=== PATIENT | female | born 1965 | race African-American/Black ===

== ENCOUNTER 2019-07-17 12:40 | Emergency (ER) | payer BC, MEDICARE ==
[~2019-07-17] VITALS: Ht 165.1 cm; Wt 79.0 kg
[~2019-07-17 12:40] MED LIST: ACTOS; LANTUS
[2019-07-17 13:16] VITALS: BP 95/54
== END 2019-07-17 13:58 | disposition left against medical advice (07) ==
LOC: ER 12:40
DX: R53.1 Weakness (principal); Z53.21 Procedure and treatment not carried out due to patient leaving prior to being seen by health care provider
CPT/HCPCS: 93005

== ENCOUNTER 2019-08-28 10:08 | Emergency (ER) | payer MEDICARE ==
[~2019-08-28] VITALS: Ht 165.1 cm; Wt 77.0 kg
[2019-08-28] MEDS ORDERED: ONDANSETRON HCL 4MG/2ML INJ IV ONE (11:00)
[2019-08-28] MEDS ORDERED: KETOROLAC 15MG/ML VIAL IV ONE (11:00)
[2019-08-28] MEDS ORDERED: SODIUM CHLORIDE 0.9% 1,000 ML IV ONE (11:00)
[2019-08-28 11:38] LABS: BASOPHILS % 1.6 % (0.0-2.0); EOSINOPHILS % 0.9 % (0.0-5.0); HEMATOCRIT. 36.4 % (36.0-48.0); HEMOGLOBIN. 11.9 g/dL (12.0-16.0); LYMPHOCYTES % 46.4 % (20.0-50.0); MEAN CORPUSCULAR HEMOGLOBIN 19.2 pg (28.0-32.0); MEAN CORPUSCULAR VOLUME 58.9 fL (81.0-99.0); MEAN PLATELET VOLUME 9.2 fl (7.4-10.4); MONOCYTES % 5.4 % (2.0-8.0); NEUTROPHILS % 45.7 % (40.0-76.0); PLATELET 328 x1000/uL (130-400); RED BLOOD CELL COUNT 6.17 mill/uL (4.2-5.4); RED CELL DISTRIBUTION WIDTH 16.5 % (11.6-14.6)
[2019-08-28 11:39] LABS: CLARITY URINE CLEAR (CLEAR); COLOR URINE YELLOW (YELLOW); KETONES URINE NEGATIVE (NEGATIVE); LEUKOCYTE ESTERASE URINE NEGATIVE (NEGATIVE); NITRITE URINE NEGATIVE (NEGATIVE); OCCULT BLOOD URINE NEGATIVE (NEGATIVE); PROTEIN URINE NEGATIVE (NEGATIVE); SPECIFIC GRAVITY URINE 1.009 (1.005-1.030); UROBILINOGEN URINE 0.2 E.U./dL (0.2-1.0)
[2019-08-28 11:44] LABS: CHLORIDE 104 mEq/L (98-107)
[2019-08-28 11:47] LABS: PROTHROMBIN TIME 10.3 sec (9.6-11.0)
[2019-08-28 11:52] LABS: PLATELET ESTIMATE NORMAL
[2019-08-28 12:20] VITALS: BP 136/65
== END 2019-08-28 12:49 | disposition home or self-care (01) ==
LOC: ER 10:08
DX: M54.9 Dorsalgia, unspecified (principal); R35.0 Frequency of micturition; R35.8 Other polyuria; E11.8 Type 2 diabetes mellitus with unspecified complications; Z98.890 Other specified postprocedural states
CPT/HCPCS: 36415; 80053; 81003; 83690; 85025; 85610; 96374; 96375; 99283; J1885; J2405; J7030

== ENCOUNTER 2021-06-28 07:28 | Emergency (ER) | payer MEDICARE ==
[~2021-06-28] VITALS: Ht 162.6 cm; Wt 72.0 kg
[2021-06-28] MEDS ORDERED: PHENAZOPYRIDINE HCL 100MG TABLET PO ONE (08:15)
[2021-06-28 08:28] LABS: BASOPHILS % 0.9 % (0.0-2.0); EOSINOPHILS % 1.8 % (0.0-5.0); HEMATOCRIT. 34.5 % (36.0-48.0); HEMOGLOBIN. 10.9 g/dL (12.0-16.0); LYMPHOCYTES % 47.9 % (20.0-50.0); MEAN CORPUSCULAR HEMOGLOBIN 19.1 pg (28.0-32.0); MEAN CORPUSCULAR VOLUME 60.1 fL (81.0-99.0); MEAN PLATELET VOLUME 9.1 fl (7.4-10.4); MONOCYTES % 7.8 % (2.0-8.0); NEUTROPHILS % 41.6 % (40.0-76.0); PLATELET 306 x1000/uL (130-400); RED BLOOD CELL COUNT 5.74 mill/uL (4.2-5.4); RED CELL DISTRIBUTION WIDTH 15.9 % (11.6-14.6)
[2021-06-28 08:29] LABS: CLARITY URINE TURBID (CLEAR); COLOR URINE YELLOW (YELLOW); KETONES URINE NEGATIVE (NEGATIVE); LEUKOCYTE ESTERASE URINE 3+ (NEGATIVE); NITRITE URINE POSITIVE (NEGATIVE); OCCULT BLOOD URINE 1+ (NEGATIVE); PH URINE 5.5 (4.5-8.0); PROTEIN URINE TRACE (NEGATIVE); UROBILINOGEN URINE 0.2 E.U./dL (0.2-1.0)
[2021-06-28 08:34] LABS: CHLORIDE 109 mEq/L (98-107)
[2021-06-28] MEDS ORDERED: CEPH500T MT (09:06)
[2021-06-28 09:10] LABS: PLATELET ESTIMATE NORMAL
[2021-06-28 09:15] VITALS: BP 129/60
[2021-07-01 04:17] LABS: NEISSERIA GONORRHOEAE NAA Negative (Negative)
== END 2021-06-28 09:45 | disposition home or self-care (01) ==
LOC: ER 07:28
DX: N39.0 Urinary tract infection, site not specified (principal); E11.65 Type 2 diabetes mellitus with hyperglycemia; Z98.890 Other specified postprocedural states; Z79.899 Other long term (current) drug therapy
CPT/HCPCS: 36415; 80053; 81003; 84702; 85025; 87077; 87186; 87491; 87591; 93005; 99284

== ENCOUNTER 2022-01-28 06:59 | Emergency (ER) | payer MEDICARE ==
[~2022-01-28] VITALS: Ht 162.6 cm; Wt 98.3 kg
[~2022-01-28 06:59] MED LIST changes: +CEPH500T MT
[2022-01-28 07:19] VITALS: BP 149/63
[2022-01-28] MEDS ORDERED: TOPUD PO (07:50)
[2022-01-28] MEDS ORDERED: AMOX-424 PO (07:50)
== END 2022-01-28 08:16 | disposition home or self-care (01) ==
LOC: ER 06:59
DX: K04.7 Periapical abscess without sinus (principal); Z98.890 Other specified postprocedural states
CPT/HCPCS: 99281